=== PATIENT | male | born 1950 | race Caucasian/White ===

== ENCOUNTER 2018-12-15 05:33 | Day surgery (SDC) | payer MEDICARE, OTHER ==
[~2018-12-15 05:33] MED LIST: AMLO-150 PO; ASPI-496 PO; CHLO25TA PO; OMEP20CA9 PO; SIMV10TA3 PO
[2018-12-15] MEDS ORDERED: LACTATED RINGERS 1,000 ML IV SCH (06:13)
[2018-12-15] MEDS ORDERED: CHOL100011 PO (06:17)
[2018-12-15] MEDS ORDERED: VITA1TAB3 PO (06:17)
[2018-12-15] MEDS ORDERED: NALT50TA PO (06:17)
[2018-12-15] MEDS ORDERED: BUPR300T4 PO (06:17)
[2018-12-15 06:22] VITALS: BP 128/85
[2018-12-15] MEDS ORDERED: BUPIVACAINE/PF 0.5% ONE (06:50)
[2018-12-15] MEDS ORDERED: methylPREDNISolone *ACETATE* 40 MG/ML ONE (06:50)
[2018-12-15] MEDS ORDERED: FENTANYL PF 100 MCG/2ML ONE (06:53)
[2018-12-15] MEDS ORDERED: ONDANSETRON 2MG/ML, 2ML ONE (06:57)
[2018-12-15] MEDS ORDERED: PROPOFOL 10 MG/ML, 20ML ONE (06:57)
[2018-12-15] MEDS ORDERED: DEXAMETHASONE 4 MG/ML, 1ML ONE (06:57)
[2018-12-15] MEDS ORDERED: CEFAZOLIN 1,000 MG ONE (06:57)
[2018-12-15] MEDS ORDERED: PROCHLORPERAZINE 5 MG/ML, 2ML IV PRN (07:00)
[2018-12-15] MEDS ORDERED: FENTANYL PF 100 MCG/2ML IV PRN (07:00)
[2018-12-15] MEDS ORDERED: PROMETHAZINE 25 MG/ML, 1ML IV PRN (07:00)
[2018-12-15] MEDS ORDERED: MEPERIDINE/PF 25MG/0.5ML IVPush PRN (07:00)
[2018-12-15] MEDS ORDERED: DIPHENHYDRAMINE 50 MG/ML, 1ML IVPush PRN (07:00)
[2018-12-15] MEDS ORDERED: HYDROmorphone 2 MG/ML, 1ML IVPush PRN (07:00)
[2018-12-15] MEDS ORDERED: OXYcodone 5 MG/5 ML ORAL.SOL UDC PO PRN (07:00)
[2018-12-15] MEDS ORDERED: METOPROLOL 1 MG/ML, 5ML IV PRN (07:00)
[2018-12-15] MEDS ORDERED: HALOPERIDOL 5 MG/ML IV PRN (07:00)
[2018-12-15] MEDS ORDERED: LABETALOL 5MG/ML, 20ML IV PRN (07:00)
[2018-12-15] MEDS ORDERED: hydrALAzine 20 MG/ML, 1ML IV PRN (07:00)
[2018-12-15 07:13] LABS: ALANINE AMINOTRANSFERASE 30 U/L (12-78); ALBUMIN 3.6 g/dL (3.4-5.0); ANION GAP 7 mmol/L (5-15); CHLORIDE 107 mmol/L (98-107); CREATININE 0.74 mg/dL (0.7-1.3)
[2018-12-15 07:15] LABS: ALKALINE PHOSPHATASE 69 U/L (45-117); BILIRUBIN,TOTAL 0.6 mg/dL (0.2-1.0); TOTAL PROTEIN 7.5 g/dL (6.4-8.2)
== END 2018-12-15 08:25 | disposition home or self-care (01) ==
LOC: OUT 05:33
PROVIDERS: ATTEND Orthopaedic Surgery
DX: M70.61 Trochanteric bursitis, right hip (principal); M16.11 Unilateral primary osteoarthritis, right hip; I10 Essential (primary) hypertension; E78.5 Hyperlipidemia, unspecified; K21.9 Gastro-esophageal reflux disease without esophagitis; Z96.641 Presence of right artificial hip joint
CPT/HCPCS: 20610; 36415; 73501; 77002; 80053; 93005; J0690; J1030; J1100; J2405; J2704; J3010; J3490; J7120; 76000